=== PATIENT | male | born 1945 | race Caucasian/White ===

== ENCOUNTER 2016-08-28 00:27 | Day surgery (SDC) | payer MEDICARE ==
[~2016-08-28] VITALS: Ht 180.3 cm; Wt 108.9 kg
[~2016-08-28 00:27] MED LIST: ASPI325T32 PO; CREST10T PO; ENAL2.5T PO; METO50TA3 PO; MULT-1018 PO; UBID100C16 PO
[2016-08-28 07:31] VITALS: BP 127/92; PULSE 89; RESP 16; O2SAT 95
[2016-08-28] MEDS ORDERED: fentaNYL-PF 50 mCg/mL 2 mL Inj IVPUSH PRN (07:55)
[2016-08-28] MEDS ORDERED: 0.9% Sodium Chloride 1,000 ML IV PRN (07:55)
[2016-08-28] MEDS ORDERED: Sodium Chloride LOK Flush 10 mL Syringe IV PRN (07:55)
[2016-08-28 08:27] VITALS: BP 113/75; PULSE 81; RESP 16; O2SAT 92
[2016-08-28 08:38] VITALS: BP 106/76; PULSE 84; RESP 16; O2SAT 94
--- NOTE | 2016-08-28 08:47 | ENDO ---
[address] [address] ENDOSCOPY PROCEDURE PATIENT: ROBERTH ORTIZ : 1945 MR#: [id number] ADMIT: 08/28/2016 JOB ID: [id number] DATE OF SURGERY: 08/28/2016 TITLE OF OPERATION: Colonoscopy with biopsy. PREOPERATIVE DIAGNOSIS(ES): History of colon polyps. POSTOPERATIVE DIAGNOSIS(ES): 1. He has large external hemorrhoids and small internal hemorrhoids. 2. A 2 mm ascending colon polyp, removed by cold biopsy forceps. ANESTHESIA: Fentanyl 100 mcg, Versed 5 mg IV administered. COMPLICATIONS: None. BLOOD LOSS: Minimal. DESCRIPTION OF PROCEDURE: After risks and benefits were explained to the patient, informed consent was obtained. After anesthesia administered, colonoscope was inserted per the rectum to the cecum. Mucosa carefully examined. Prep of the patient was fair. After the procedure was done, the scope was withdrawn, and the procedure terminated. FINDINGS: Upon inspection of the anus, there were large external hemorrhoids that were seen. Throughout the entire examination, there were no masses or fissures that were seen. Throughout the entire examination, there was a 2 mm ascending colon polyp, removed by cold biopsy forceps. There were no other polyps or masses that were seen. Retroflexion showed small internal hemorrhoids. IMPRESSION: 1. Large external hemorrhoids. 2. Small internal hemorrhoids. 3. A 2 mm ascending colon polyp, removed by cold biopsy forceps. RECOMMENDATIONS: Await pathology results. Stool softener as needed. Repeat colonoscopy in five years given the history of colon polyps.
--- NOTE | 2016-08-31 14:15 | PATH ---
SURGICAL PATHOLOGY Attending Physician:Owen Spangler MD CASE STATUS: Signed Out PATIENT NAME: ROBERTH ORTIZ PID: [id number] : 1945 DATE COLLECTED:08/28/2016 22:22 SPECIMEN: Colon, Polyp CLINICAL HISTORY: 1). ASCENDING POLYP X1 FINAL DIAGNOSIS: 1.ASCENDING COLON POLYP: TUBULAR ADENOMA. ICD10 D12.6 GROSS DESCRIPTION: The specimen is received in formalin, labeled with the patient's name, sublabeled as ascend, and consists of a fragment of dodson, glistening, semi-translucent tissue (0.4 x 0.2 x 0.1 cm). Section code: (A) tissue. Specimen entirely submitted. ([id number]) MICRO DESCRIPTION: See diagnosis. ICD-9 CODES: CPT CODES: 1: 49120 Electronically Signed Out Abdirashid Bolanos MD [facility] [address], [place] [address] Technical component performed at [facility], [facility] [address], [address]
== END 2016-08-28 23:59 | disposition home or self-care (01) ==
LOC: END 00:27
PROVIDERS: ATTEND Internal Medicine Gastroenterology
DX: Z12.11 Encounter for screening for malignant neoplasm of colon (principal); Z86.010 Personal history of colon polyps; Z80.0 Family history of malignant neoplasm of digestive organs; D12.2 Benign neoplasm of ascending colon; K64.4 Residual hemorrhoidal skin tags; K64.8 Other hemorrhoids; I10 Essential (primary) hypertension; I25.10 Atherosclerotic heart disease of native coronary artery without angina pectoris; E78.5 Hyperlipidemia, unspecified; Z95.5 Presence of coronary angioplasty implant and graft; Z79.82 Long term (current) use of aspirin
CPT/HCPCS: 45380; G0500; J2250; J3010; J7030